=== PATIENT | male | born 1985 | race Caucasian/White ===

== ENCOUNTER 2022-06-15 20:58 | Emergency (ER) | payer OTHER ==
[~2022-06-15] VITALS: Ht 177.8 cm; Wt 81.7 kg
[2022-06-15 21:34] LABS: BASOPHILS ABSOLUTE AUTO 0.06 K/mm3 (0.00-0.23); BASOPHILS PERCENT AUTO 1 % (0-2); EOSINOPHILS ABSOLUTE AUTO 0.33 K/mm3 (0.00-0.68); EOSINOPHILS PERCENT AUTO 3 % (0-6); Hematocrit 34.4 % (37.0-53.0); Hemoglobin 11.7 g/dL (13.5-17.5); IMMATURE GRAN ABSOLUTE AUTO 0.06 K/mm3 (0.00-0.10); IMMATURE GRAN PERCENT AUTO 1 % (0-1); LYMPHOCYTES ABSOLUTE AUTO 3.65 K/mm3 (0.84-5.20); LYMPHOCYTES PERCENT AUTO 31 % (21-46); MONOCYTES ABSOLUTE AUTO 0.96 K/mm3 (0.16-1.47); MONOCYTES PERCENT AUTO 8 % (4-13); Mean Corpuscular HGB 34.8 pg (26.0-34.0); Mean Corpuscular Volume 102 fL (80-100); NEUTROPHILS ABSOLUTE AUTO 6.86 K/mm3 (1.96-9.15); NEUTROPHILS PERCENT AUTO 58 % (41-73); Platelet Count 237 K/mm3 (150-400); RDW Coefficient Variation 14.2 % (11.7-14.2); RDW Standard Deviation 53.2 fL (35.1-46.3); Red Blood Cell Count 3.36 M/mm3 (4.30-5.90); White Blood Cell Count 11.92 K/mm3 (4.00-11.30)
[2022-06-15 21:53] LABS: Alanine Aminotransfer (ALT/SGP 85 U/L (12-78); Albumin, Blood 2.9 g/dL (3.4-5.0); Albumin/Globulin Ratio 0.8 (0.8-1.8); Alk Phos 121 U/L (50-136); Anion Gap 6 mmol/L (6-16); Aspartate Aminotrans (AST/SGOT 43 U/L (12-37); Bilirubin, Total 0.6 mg/dL (0.1-1.0); Blood Urea Nitrogen 13 mg/dL (8-24); Bun/Creatinine Ratio 12.9 (12.0-20.0); CO2, Blood 26 mmol/L (21-32); Calcium, Blood 8.4 mg/dL (8.5-10.1); Chloride, Blood 107 mmol/L (98-108); Creatinine, Blood 1.01 mg/dL (0.60-1.20); Ethanol (Alcohol), Blood, Med <3 mg/dL; Globulin, Blood 3.8 g/dL (2.2-4.0); Glomerular Filtration Rate 98 (60-); Glucose, Blood 138 mg/dL (70-99); Potassium, Blood 3.3 mmol/L (3.5-5.5); Sodium, Blood 139 mmol/L (136-145); Total Protein, Blood 6.7 g/dL (6.4-8.2)
== END 2022-06-16 02:54 | disposition home or self-care (01) ==
LOC: ER 20:58
PROVIDERS: Physician Assistant
DX: R41.82 Altered mental status, unspecified (principal); S93.402A Sprain of unspecified ligament of left ankle, initial encounter; F10.939 Alcohol use, unspecified with withdrawal, unspecified; X58.XXXA Exposure to other specified factors, initial encounter
CPT/HCPCS: 73610; 80053; 85025; 93005; 93010; G0480; J7030

== ENCOUNTER 2022-10-24 14:49 | Emergency (ER) | payer OTHER ==
[~2022-10-24] VITALS: Ht 180.3 cm; Wt 95.2 kg
[2022-10-24 15:07] VITALS: BP 121/64
[2022-10-24] MEDS ORDERED: CRUTCH2 XX (15:58)
== END 2022-10-24 16:08 | disposition home or self-care (01) ==
LOC: ER 14:49
DX: S82.61XA Displaced fracture of lateral malleolus of right fibula, initial encounter for closed fracture (principal); F17.210 Nicotine dependence, cigarettes, uncomplicated; X50.1XXA Overexertion from prolonged static or awkward postures, initial encounter; W21.07XA Struck by softball, initial encounter
CPT/HCPCS: 73610

== ENCOUNTER 2022-11-03 06:03 | Day surgery (SDC) | payer OTHER ==
[~2022-11-03] VITALS: Ht 180.3 cm; Wt 93.9 kg
[~2022-11-03 06:03] MED LIST: CRUTCH2 XX
[2022-11-03] MEDS ORDERED: DICL75ER (06:30)
[2022-11-03] MEDS ORDERED: GABA100 (06:30)
[2022-11-03] MEDS ORDERED: BUPR75 (06:30)
[2022-11-03] MEDS ORDERED: PROPRANOLOL HCL80 MG (06:30)
[2022-11-03] MEDS ORDERED: SERT25 (06:30)
--- NOTE | 2022-11-03 06:37 | NUR ---
11/03/22 0637 Priscila Menard PT STATES UNKNOWN RECACTION TO PCN A CHILD. OK TO GIVE ANCEF PER DR KINNEY ORDERS.
--- NOTE | 2022-11-03 08:40 | NUR ---
11/03/22 0840 Annia Rachel 0.15ML EPI ADDED TO 30ML OF ROPIVICAINE
[2022-11-03 09:26] VITALS: BP 138/69
--- NOTE | 2022-11-03 09:55 | NUR ---
11/03/22 0955 Fouzia Vergara PT HAS PAIN RATED AT 10/10, PT HAS A VIVITROL INJECTION AND CANNOT RECEIVE NARCOTICS FOR PAIN. PT GIVEN TYLENOL 650MG PO PER DR. RAVI. PT CONTINUES TO HAVE PAIN RATED AT 10/10. PT WISHES TO BE DISCHARGED. PT GIVEN ICE PACKS AND INSTRUCTIONS ON PRESCRIPTION FOR TORADOL. VS REMAIN STABLE. PT VERBALIZES UNDERSTANDING REGARDING MEDICAL STAFF NOT BEING ABLE TO GIVE NARCOTICS FOR PAIN. PT TO BE DISCHARGED HOME.
== END 2022-11-03 09:55 | disposition home or self-care (01) ==
LOC: ORSCSDS 06:03
PROVIDERS: Orthopaedic Surgery
PROC: 0QSJ04Z Reposition Right Fibula with Internal Fixation Device, Open Approach (ICD-10-PCS; principal; 2022-11-03 07:30)
DX: S82.61XA Displaced fracture of lateral malleolus of right fibula, initial encounter for closed fracture (principal); I10 Essential (primary) hypertension; Z79.899 Other long term (current) drug therapy; F32.A Depression, unspecified
CPT/HCPCS: A9270; C1713; J0171; J0690; J1885; J2250; J2704; J2795; J3010; J7120